=== PATIENT | male | born 1970 | race African-American/Black ===

== ENCOUNTER 2022-05-06 09:58 | Emergency (ER) | payer MEDICAID ==
[~2022-05-06] VITALS: Ht 172.7 cm; Wt 73.0 kg
[2022-05-06 10:10] VITALS: BP 149/105
[2022-05-06 12:05] LABS: CHLORIDE 105 mEq/L (98-107)
[2022-05-06 12:17] LABS: BASOPHILS % 0.5 % (0.0-2.0); EOSINOPHILS % 1.5 % (0.0-5.0); HEMATOCRIT. 46.6 % (42.0-52.0); HEMOGLOBIN. 15.8 g/dL (14.0-18.0); LYMPHOCYTES % 14.9 % (20.0-50.0); MEAN CORPUSCULAR HEMOGLOBIN 28.3 pg (28.0-32.0); MEAN CORPUSCULAR VOLUME 83.6 fL (80.0-94.0); MEAN PLATELET VOLUME 10.1 fl (7.4-10.4); MONOCYTES % 10.6 % (2.0-8.0); NEUTROPHILS % 72.5 % (40.0-76.0); PLATELET 192 x1000/uL (130-400); RED BLOOD CELL COUNT 5.57 mill/uL (4.7-6.1); RED CELL DISTRIBUTION WIDTH 13.4 % (11.6-14.6)
[2022-05-06] MEDS ORDERED: AMLO5TAB88 MT (14:04)
== END 2022-05-06 14:37 | disposition home or self-care (01) ==
LOC: ER 09:58
DX: R03.0 Elevated blood-pressure reading, without diagnosis of hypertension (principal); F14.10 Cocaine abuse, uncomplicated
CPT/HCPCS: 36415; 80048; 85025; 99283

== ENCOUNTER 2022-06-30 04:08 | Inpatient (IN) | payer MEDICAID ==
[~2022-06-30] VITALS: Ht 172.7 cm; Wt 74.8 kg
[~2022-06-30 04:08] MED LIST: AMLO5TAB88 MT
[2022-06-30 05:04] LABS: BASOPHILS % 0.6 % (0.0-2.0); EOSINOPHILS % 0.4 % (0.0-5.0); HEMATOCRIT. 47.5 % (42.0-52.0); HEMOGLOBIN. 16.4 g/dL (14.0-18.0); LYMPHOCYTES % 16.8 % (20.0-50.0); MEAN CORPUSCULAR HEMOGLOBIN 29.4 pg (28.0-32.0); MEAN CORPUSCULAR VOLUME 85.1 fL (80.0-94.0); MEAN PLATELET VOLUME 9.4 fl (7.4-10.4); MONOCYTES % 8.5 % (2.0-8.0); NEUTROPHILS % 73.7 % (40.0-76.0); PLATELET 222 x1000/uL (130-400); RED BLOOD CELL COUNT 5.58 mill/uL (4.7-6.1); RED CELL DISTRIBUTION WIDTH 14.7 % (11.6-14.6)
[2022-06-30 05:11] LABS: CHLORIDE 110 mEq/L (98-107)
[2022-06-30 05:23] LABS: ETHANOL BLOOD < 10 mg/dL
[2022-06-30] MEDS ORDERED: FUROSEMIDE 100MG/10ML VIAL IVP ONE (08:45)
[2022-06-30] MEDS ORDERED: HYDRALAZINE 20MG/ML VIAL IV ONE (08:45)
[2022-06-30] MEDS ORDERED: ASPIRIN 325MG EC TABLET PO NR (09:00)
[2022-06-30] MEDS ORDERED: FUROSEMIDE 40MG/4ML VIAL IVP NR (09:34)
[2022-06-30 11:26] LABS: *AMPHETAMINES SCREEN URINE NEGATIVE (NEGATIVE); *BARBITURATES SCREEN URINE NEGATIVE (NEGATIVE); *BENZODIAZEPINES SCREEN URINE NEGATIVE (NEGATIVE); *COCAINE SCREEN URINE PRESUMTIVE POSITIVE (NEGATIVE); CANNABINOID URINE SCREEN NEGATIVE (NEGATIVE); METHADONE URINE SCREEN NEGATIVE (NEGATIVE); OPIATES URINE SCREEN NEGATIVE (NEGATIVE); PHENCYCLIDINE URINE SCREEN NEGATIVE (NEGATIVE)
[2022-06-30] MEDS ORDERED: ONDANSETRON HCL 4MG/2ML INJ IV PRN (13:15)
[2022-06-30] MEDS ORDERED: MAGNESIUM/ALUMINUM HYDROXIDE/SIMETHICONE 30ML UDC PO PRN (13:15)
[2022-06-30] MEDS ORDERED: IPRATROPIUM/ALBUTEROL 0.5-3(2.5)MG/3ML NEB NEB PRN (13:15)
[2022-06-30] MEDS ORDERED: ACETAMINOPHEN 325MG TABLET PO PRN ×2 (13:15)
[2022-06-30] MEDS: ENOXAPARIN 40MG/0.4ML SYR SUBCUT SCH (14:50)
[2022-06-30 16:00] VITALS: BP 165/118
[2022-06-30] MEDS ORDERED: LORAZEPAM 1MG TABLET PO PRN (16:15)
[2022-06-30] MEDS: CLONIDINE 0.1MG TABLET PO PRN (16:19)
[2022-06-30] MEDS ORDERED: HYDRALAZINE 20MG/ML VIAL IV PRN (17:00)
[2022-06-30] MEDS: AMLODIPINE 10MG TABLET PO SCH (17:29)
[2022-06-30 20:00] VITALS: BP 113/86
[2022-07-01] VITALS: BP 128/92
[2022-07-01 04:00] VITALS: BP 143/97
[2022-07-01 07:32] LABS: CHLORIDE 104 mEq/L (98-107)
[2022-07-01 07:46] LABS: HDL CHOLESTEROL 49 mg/dL (40-59); LDL CHOLESTEROL 79 mg/dL (5-100); PHOSPHORUS 3.1 mg/dL (2.5-4.9); T4 FREE 1.07 ng/dL (0.76-1.46)
[2022-07-01 08:00] VITALS: BP 148/103
[2022-07-01 08:07] LABS: VITAMIN B12 SERUM 613 pg/mL (211-911)
[2022-07-01 08:17] LABS: BASOPHILS % 0.8 % (0.0-2.0); EOSINOPHILS % 0.5 % (0.0-5.0); HEMATOCRIT. 48.5 % (42.0-52.0); HEMOGLOBIN. 16.7 g/dL (14.0-18.0); LYMPHOCYTES % 18.4 % (20.0-50.0); MEAN CORPUSCULAR HEMOGLOBIN 28.6 pg (28.0-32.0); MEAN CORPUSCULAR VOLUME 82.9 fL (80.0-94.0); MONOCYTES % 9.9 % (2.0-8.0); NEUTROPHILS % 70.4 % (40.0-76.0); PLATELET 238 x1000/uL (130-400); RED BLOOD CELL COUNT 5.85 mill/uL (4.7-6.1)
[2022-07-01] MEDS: THIAMINE HCL 100MG TABLET PO SCH (09:07)
[2022-07-01] MEDS: AMLODIPINE 10MG TABLET PO SCH (09:07)
[2022-07-01] MEDS: CLONIDINE 0.1MG TABLET PO PRN ×2 (09:07→17:03)
[2022-07-01] MEDS: FUROSEMIDE 40MG/4ML VIAL IVP SCH ×2 (09:11→17:03)
[2022-07-01 12:00] VITALS: BP 159/89
[2022-07-01 14:16] LABS: HEPATITIS B SURFACE ANTIGEN NEGATIVE
[2022-07-01] MEDS: ENOXAPARIN 40MG/0.4ML SYR SUBCUT SCH (15:17)
[2022-07-01 16:00] VITALS: BP 160/90
[2022-07-01 16:02] LABS: CREATINE KINASE MB FRACTION 3.2 ng/mL (0.5-3.6)
[2022-07-01 20:00] VITALS: BP 111/76
[2022-07-02] VITALS: BP 145/93
[2022-07-02 00:10] LABS: CREATINE KINASE MB FRACTION 2.6 ng/mL (0.5-3.6)
[2022-07-02 04:45] VITALS: BP 124/85
[2022-07-02 07:41] VITALS: BP 128/82
[2022-07-02 08:50] LABS: BASOPHILS % 0.5 % (0.0-2.0); EOSINOPHILS % 0.6 % (0.0-5.0); HEMATOCRIT. 51.7 % (42.0-52.0); LYMPHOCYTES % 16.7 % (20.0-50.0); MEAN CORPUSCULAR HEMOGLOBIN 28.9 pg (28.0-32.0); MEAN CORPUSCULAR VOLUME 83.1 fL (80.0-94.0); MEAN PLATELET VOLUME 9.8 fl (7.4-10.4); NEUTROPHILS % 72.2 % (40.0-76.0); PLATELET 223 x1000/uL (130-400); RED BLOOD CELL COUNT 6.23 mill/uL (4.7-6.1)
[2022-07-02 09:14] LABS: CHLORIDE 102 mEq/L (98-107)
[2022-07-02] MEDS: THIAMINE HCL 100MG TABLET PO SCH (09:43)
[2022-07-02] MEDS: AMLODIPINE 10MG TABLET PO SCH (09:43)
[2022-07-02] MEDS: FUROSEMIDE 40MG/4ML VIAL IVP SCH ×2 (09:43→17:11)
[2022-07-02] MEDS: LOSARTAN POTASSIUM 25 MG TABLET PO SCH (09:47)
[2022-07-02 12:00] VITALS: BP 127/80
[2022-07-02] MEDS: ENOXAPARIN 40MG/0.4ML SYR SUBCUT SCH (14:41)
[2022-07-02] MEDS ORDERED: LOSA25TA3 PO (15:56)
[2022-07-02] MEDS ORDERED: THIA100T72 PO (15:56)
[2022-07-02] MEDS ORDERED: AMLO10TA80 PO (15:56)
[2022-07-02 16:00] VITALS: BP 132/88
[2022-07-02 20:20] VITALS: BP 100/67
[2022-07-03 00:20] VITALS: BP 120/77
[2022-07-03 04:00] VITALS: BP 121/84
[2022-07-03 07:12] LABS: BASOPHILS % 0.4 % (0.0-2.0); EOSINOPHILS % 1.4 % (0.0-5.0); HEMATOCRIT. 49.8 % (42.0-52.0); HEMOGLOBIN. 17.3 g/dL (14.0-18.0); LYMPHOCYTES % 18.1 % (20.0-50.0); MEAN CORPUSCULAR VOLUME 83.5 fL (80.0-94.0); MEAN PLATELET VOLUME 9.6 fl (7.4-10.4); MONOCYTES % 11.6 % (2.0-8.0); NEUTROPHILS % 68.5 % (40.0-76.0); PLATELET 212 x1000/uL (130-400); RED BLOOD CELL COUNT 5.96 mill/uL (4.7-6.1); RED CELL DISTRIBUTION WIDTH 14.3 % (11.6-14.6)
[2022-07-03 07:15] LABS: CHLORIDE 102 mEq/L (98-107)
[2022-07-03 08:00] VITALS: BP 132/100
[2022-07-03] MEDS: THIAMINE HCL 100MG TABLET PO SCH (09:39)
[2022-07-03] MEDS: LOSARTAN POTASSIUM 25 MG TABLET PO SCH (09:39)
[2022-07-03] MEDS: AMLODIPINE 10MG TABLET PO SCH (09:39)
[2022-07-03] MEDS: FUROSEMIDE 40MG/4ML VIAL IVP SCH (10:07)
[2022-07-03 12:00] VITALS: BP 127/83
[2022-07-03] MEDS: ENOXAPARIN 40MG/0.4ML SYR SUBCUT SCH (13:23)
[2022-07-03 15:15] VITALS: BP 129/82
[2022-07-03 15:19] VITALS: BP 127/81
[2022-07-03] MEDS ORDERED: SORBITOL 70% SOLN 30ML PO NR (16:00)
[2022-07-16] MEDS ORDERED: LOSA50TA3 PO (12:29)
[2022-07-16] MEDS ORDERED: AMLO10TA80 PO (12:29)
[2022-07-16] MEDS ORDERED: FURO40TA5 MT (12:29)
[2022-07-16] MEDS ORDERED: THIA100T72 PO (13:55)
== END 2022-07-03 16:00 | DRG 194 ==
LOC: ER 04:08 → SUPCPDRO 13:13 → 7EST 13:13 → 8WST 07-01 11:18
PROVIDERS: ADMIT Internal Medicine; ATTEND Internal Medicine
DX: I13.0 Hypertensive heart and chronic kidney disease with heart failure and stage 1 through stage 4 chronic kidney disease, or unspecified chronic kidney disease (principal); N17.9 Acute kidney failure, unspecified; N18.9 Chronic kidney disease, unspecified; I16.9 Hypertensive crisis, unspecified; F17.210 Nicotine dependence, cigarettes, uncomplicated; Z20.822 Contact with and (suspected) exposure to COVID-19; F14.10 Cocaine abuse, uncomplicated; R74.01 Elevation of levels of liver transaminase levels; F10.10 Alcohol abuse, uncomplicated; I50.21 Acute systolic (congestive) heart failure; K56.41 Fecal impaction; Z91.199 Patient's noncompliance with other medical treatment and regimen due to unspecified reason; Z59.00 Homelessness unspecified
CPT/HCPCS: 36415; 71045; 74176; 76700; 80048; 80053; 80061; 80076; 80305; 80320; 82550; 82553; 82607; 82746; 82977; 83036; 83735; 83880; 84100; 84145; 84439; 84443; 84484; 85025; 85379; 86705; 86706; 86709; 86803; 87340; 87426; 93005; 93306; 99291; J0360; J1650; J1940; G0480

== ENCOUNTER 2022-09-22 06:35 | Emergency (ER) | payer MEDICAID ==
[~2022-09-22] VITALS: Ht 172.7 cm; Wt 78.0 kg
[~2022-09-22 06:35] MED LIST changes: +AMLO10TA80 PO; -AMLO5TAB88 MT; +FURO40TA5 MT; +LOSA-413 PO; +THIA100T72 PO
[2022-09-22 06:43] VITALS: O2SAT 95
[2022-09-22 08:27] LABS: BASOPHILS % 0.4 % (0.0-2.0); DIFFERENTIAL COMMENT 0; EOSINOPHILS % 0.2 % (0.0-5.0); HEMATOCRIT. 41.3 % (42.0-52.0); LYMPHOCYTES % 12.6 % (20.0-50.0); MEAN CORPUSCULAR HEMOGLOBIN 28.7 pg (28.0-32.0); MEAN CORPUSCULAR HGB CONC 33.8 g/dL (31.0-37.0); MEAN PLATELET VOLUME 9.1 fl (7.4-10.4); NEUTROPHILS % 79.8 % (40.0-76.0); PLATELET 232 x1000/uL (130-400); RED BLOOD CELL COUNT 4.87 mill/uL (4.7-6.1); RED CELL DISTRIBUTION WIDTH 14.5 % (11.6-14.6)
[2022-09-22 08:37] LABS: CHLORIDE 109 mEq/L (98-107); INDEX HEMOLYSI 1 (1-3); INDEX ICTERIC 1 (1-4); INDEX LIPEMIC 1 (1-3); POTASSIUM 4.4 mEq/L (3.5-5.1); SODIUM 135 mEq/L (136-145)
[2022-09-22 08:48] LABS: ALANINE AMINOTRANSFERASE 95 IU/L (13-61); ASPARTATE AMINOTRANSFERASE 61 IU/L (15-37); BILIRUBIN TOTAL 0.4 mg/dL (0.1-1.0); CALCIUM 8.5 mg/dL (8.5-10.1); CARBON DIOXIDE 20 mEq/L (21-32); CREATININE 2.3 mg/dL (0.6-1.3); GLUCOSE 140 mg/dL (70-105); PROTEIN TOTAL 6.2 g/dL (6.0-8.3); UREA NITROGEN BLOOD 41 mg/dL (7-21)
[2022-09-22] MEDS ORDERED: FAMOTIDINE 20MG TABLET PO ONE (09:30)
[2022-09-22] MEDS ORDERED: ONDANSETRON HCL 4MG TABLET PO ONE (09:30)
[2022-09-22] MEDS ORDERED: ONDANSETRON HCL 4MG TABLET PO NR (09:45)
[2022-09-22] MEDS ORDERED: FAMOTIDINE 20MG TABLET PO NR (09:45)
[2022-09-22 09:59] LABS: ACETAMINOPHEN < 2 ug/mL (10-30); ETHANOL BLOOD < 10 mg/dL (-10)
[2022-09-22] MEDS ORDERED: POLY119P2 MT (12:19)
[2022-09-22 12:29] LABS: CLARITY URINE CLEAR (CLEAR); COLOR URINE YELLOW (YELLOW); GLUCOSE URINE NEGATIVE (NEGATIVE); KETONES URINE NEGATIVE (NEGATIVE); LEUKOCYTE ESTERASE URINE NEGATIVE (NEGATIVE); NITRITE URINE NEGATIVE (NEGATIVE); OCCULT BLOOD URINE TRACE (NEGATIVE); PROTEIN URINE 1+ (NEGATIVE); SPECIFIC GRAVITY URINE 1.019 (1.005-1.030); UROBILINOGEN URINE 0.2 E.U./dL (0.2-1.0)
[2022-09-22] MEDS ORDERED: POLYETHYLENE GLYCOL 3350 (17GM) 1 DOSE PACK PO ONE (12:30)
[2022-09-22 12:57] LABS: *AMPHETAMINES SCREEN URINE NEGATIVE (NEGATIVE); *BARBITURATES SCREEN URINE NEGATIVE (NEGATIVE); *BENZODIAZEPINES SCREEN URINE NEGATIVE (NEGATIVE); *COCAINE SCREEN URINE PRESUMTIVE POSITIVE (NEGATIVE); CANNABINOID URINE SCREEN PRESUMTIVE POSITIVE (NEGATIVE); ECSTASY MDMA SCREEN URINE NEGATIVE (NEGATIVE); METHADONE URINE SCREEN NEGATIVE (NEGATIVE); OPIATES URINE SCREEN NEGATIVE (NEGATIVE); PHENCYCLIDINE URINE SCREEN NEGATIVE (NEGATIVE)
[2022-09-22 13:34] LABS: MUCUS URINE TRACE /lpf (NONE/TRACE)
[2022-09-22 13:35] LABS: SQUAMOUS EPITHELIAL CELL URINE NONE SEEN /lpf (RARE/1+)
[2022-09-22 13:36] LABS: BACTERIA URINE TRACE; URIC ACID CRYSTALS URINE 1+ /lpf; WBC URINE 0-2 /hpf (0-2)
[2022-09-22 13:37] LABS: RBC URINE NONE SEEN /hpf (0-2)
[2022-09-22 13:41] VITALS: BP 130/87; PULSE 78; RESP 17; TEMP 98.1
== END 2022-09-22 13:43 | disposition home or self-care (01) ==
LOC: ER 06:35
DX: K59.00 Constipation, unspecified (principal); I10 Essential (primary) hypertension; F14.10 Cocaine abuse, uncomplicated; F15.10 Other stimulant abuse, uncomplicated
CPT/HCPCS: 80053; 80305; 81003; 80307; 80329; 80320; 83690; 85025; 36415; 74176; 99284; Z7610; G0480

== ENCOUNTER 2022-11-08 05:41 | Emergency (ER) | payer MEDICAID ==
[~2022-11-08] VITALS: Ht 170.2 cm; Wt 76.0 kg
[~2022-11-08 05:41] MED LIST changes: +POLY119P2 MT
[2022-11-08 05:46] VITALS: TEMP 98.2; O2SAT 98
[2022-11-08] MEDS ORDERED: MAGNESIUM/ALUMINUM HYDROXIDE/SIMETHICONE 30ML UDC PO STA (05:52)
[2022-11-08 06:25] LABS: BASOPHILS % 0.7 % (0.0-2.0); EOSINOPHILS % 0.1 % (0.0-5.0); HEMATOCRIT. 45.6 % (42.0-52.0); HEMOGLOBIN. 15.5 g/dL (14.0-18.0); LYMPHOCYTES % 10.2 % (20.0-50.0); MEAN CORPUSCULAR HGB CONC 34.1 g/dL (31.0-37.0); MONOCYTES % 7.6 % (2.0-8.0); NEUTROPHILS % 81.4 % (40.0-76.0); PLATELET 171 x1000/uL (130-400); RED BLOOD CELL COUNT 5.37 mill/uL (4.7-6.1); RED CELL DISTRIBUTION WIDTH 14.1 % (11.6-14.6); WHITE BLOOD COUNT 7.3 x1000/uL (4.5-11.0)
[2022-11-08 06:55] LABS: INDEX HEMOLYSI 1 (1-3); INDEX ICTERIC 1 (1-4); INDEX LIPEMIC 1 (1-3)
[2022-11-08 07:07] LABS: ALANINE AMINOTRANSFERASE 39 IU/L (13-61); ALBUMIN 3.4 g/dL (3.4-5.0); ASPARTATE AMINOTRANSFERASE 31 IU/L (15-37); BILIRUBIN TOTAL 0.6 mg/dL (0.1-1.0); CALCIUM 8.4 mg/dL (8.5-10.1); CARBON DIOXIDE 23 mEq/L (21-32); CHLORIDE 108 mEq/L (98-107); CREATININE 2.2 mg/dL (0.6-1.3); ETHANOL BLOOD < 10 mg/dL (-10); GLUCOSE 125 mg/dL (70-105); NT PRO B-TYPE NATRIURETIC PEP 21108 pg/mL (5-125); POTASSIUM 4.9 mEq/L (3.5-5.1); SODIUM 137 mEq/L (136-145); TROPONIN I HIGH SENSITIVITY 32 ng/L (<78); UREA NITROGEN BLOOD 26 mg/dL (7-21)
[2022-11-08] MEDS ORDERED: MAGNESIUM/ALUMINUM HYDROXIDE/SIMETHICONE 30ML UDC PO NR (08:00)
[2022-11-08] MEDS ORDERED: AMLO10TA4 MT (08:36)
[2022-11-08] MEDS ORDERED: LOSA-413 MT (08:36)
[2022-11-08] MEDS ORDERED: FURO-151 MT (08:36)
[2022-11-08 08:45] VITALS: BP 132/76; PULSE 80; RESP 16
[2022-11-08] MEDS ORDERED: FUROSEMIDE 40MG TABLET PO ONE (08:45)
[2022-11-08] MEDS ORDERED: ACETAMINOPHEN WITH CODEINE 300/30MG TABLET PO ONE (08:45)
[2022-11-08] MEDS ORDERED: LOSARTAN POTASSIUM 50 MG TABLET PO ONE (08:45)
[2022-11-08] MEDS ORDERED: AMLODIPINE 10MG TABLET PO ONE (08:45)
== END 2022-11-08 09:22 | disposition home or self-care (01) ==
LOC: ER 05:41
DX: I11.0 Hypertensive heart disease with heart failure (principal); I50.9 Heart failure, unspecified; F14.10 Cocaine abuse, uncomplicated; F12.10 Cannabis abuse, uncomplicated; R10.9 Unspecified abdominal pain
CPT/HCPCS: 80053; 80320; 83880; 83690; 85025; 84484; 36415; 71045; 74176; 93005; 99285; Z7610; G0480

== ENCOUNTER 2022-11-15 13:51 | Emergency (ER) | payer MEDICAID ==
[~2022-11-15] VITALS: Ht 172.7 cm; Wt 72.0 kg
[~2022-11-15 13:51] MED LIST changes: +AMLO10TA4 MT; +FURO-151 MT; +LOSA-413 MT
[2022-11-15 14:02] VITALS: BP 118/89; RESP 22; TEMP 98.7; O2SAT 99
[2022-11-15 14:07] VITALS: PULSE 62
[2022-11-15] MEDS ORDERED: POLY119P2 MT (14:28)
== END 2022-11-15 15:32 | disposition home or self-care (01) ==
LOC: ER 13:51
DX: Z76.0 Encounter for issue of repeat prescription (principal); I11.0 Hypertensive heart disease with heart failure; I50.9 Heart failure, unspecified; Z79.899 Other long term (current) drug therapy; F14.10 Cocaine abuse, uncomplicated; F12.10 Cannabis abuse, uncomplicated
CPT/HCPCS: 99281

== ENCOUNTER 2022-11-26 13:10 | Emergency (ER) | payer MEDICAID ==
[~2022-11-26] VITALS: Ht 175.3 cm; Wt 74.0 kg
[2022-11-26 13:16] VITALS: BP 137/97; PULSE 85; RESP 19; TEMP 98; O2SAT 97
== END 2022-11-26 15:26 | disposition home or self-care (01) ==
LOC: ER 13:16
DX: R10.30 Lower abdominal pain, unspecified (principal); R06.02 Shortness of breath; F12.90 Cannabis use, unspecified, uncomplicated; I11.0 Hypertensive heart disease with heart failure
CPT/HCPCS: 99283

== ENCOUNTER 2022-12-02 03:49 | Emergency (ER) | payer MEDICAID ==
[~2022-12-02] VITALS: Ht 165.1 cm; Wt 67.0 kg
[2022-12-02 03:55] VITALS: TEMP 98.3; O2SAT 100
[2022-12-02] MEDS ORDERED: TETRACAINE 0.5% OPHTH DROPS 4ML LEFTEYE ONE (05:45)
[2022-12-02] MEDS ORDERED: FLUORESCEIN SODIUM 1MG/STRIP LEFTEYE ONE (05:45)
[2022-12-02] MEDS ORDERED: POLY10DR LEFTEYE (06:28)
[2022-12-02 07:00] VITALS: BP 142/79; PULSE 91; RESP 17
== END 2022-12-02 07:16 | disposition home or self-care (01) ==
LOC: ER 03:49
DX: H10.9 Unspecified conjunctivitis (principal); I11.0 Hypertensive heart disease with heart failure; I50.9 Heart failure, unspecified; F14.10 Cocaine abuse, uncomplicated; F12.10 Cannabis abuse, uncomplicated; Z79.899 Other long term (current) drug therapy
CPT/HCPCS: 99283; Z7610

== ENCOUNTER 2023-02-12 02:53 | Emergency (ER) | payer MEDICAID ==
[~2023-02-12] VITALS: Ht 177.8 cm; Wt 82.0 kg
[~2023-02-12 02:53] MED LIST changes: -AMLO10TA4 MT; +ASPI-1160 PO; +DOCU-138 MT; -FURO-151 MT; +FURO10VI3 PO; -FURO40TA5 MT; -LOSA-413 MT; -LOSA-413 PO; +LOSA50TA41 PO; -POLY119P2 MT; +POLY17PO43 PO; +SPIR25TA PO; -THIA100T72 PO
[2023-02-12 03:00] VITALS: BP 153/119; O2SAT 100
[2023-02-12] MEDS ORDERED: BISA-81 MT (04:33)
[2023-02-12 04:59] VITALS: PULSE 91; RESP 18; TEMP 98
== END 2023-02-12 05:02 | disposition home or self-care (01) ==
LOC: ER 02:53
DX: K59.00 Constipation, unspecified (principal); I11.0 Hypertensive heart disease with heart failure; I50.9 Heart failure, unspecified; Z79.899 Other long term (current) drug therapy
CPT/HCPCS: 99283

== ENCOUNTER 2023-02-21 22:15 | Emergency (ER) | payer MEDICAID ==
[~2023-02-21] VITALS: Ht 162.6 cm; Wt 60.0 kg
[~2023-02-21 22:15] MED LIST changes: +BISA-81 MT
[2023-02-21 22:22] VITALS: BP 173/108; PULSE 120; RESP 18; TEMP 98.4; O2SAT 98
[2023-02-21 23:29] LABS: BASOPHILS % 0.6 % (0.0-2.0); DIFFERENTIAL COMMENT 0; EOSINOPHILS % 0.7 % (0.0-5.0); HEMATOCRIT. 48.5 % (42.0-52.0); HEMOGLOBIN. 15.9 g/dL (14.0-18.0); LYMPHOCYTES % 11.5 % (20.0-50.0); MEAN CORPUSCULAR HEMOGLOBIN 28.4 pg (28.0-32.0); MEAN CORPUSCULAR HGB CONC 32.8 g/dL (31.0-37.0); MEAN CORPUSCULAR VOLUME 86.6 fL (80.0-94.0); MEAN PLATELET VOLUME 8.6 fl (7.4-10.4); MONOCYTES % 6.5 % (2.0-8.0); NEUTROPHILS % 80.7 % (40.0-76.0); PLATELET 232 x1000/uL (130-400); RED CELL DISTRIBUTION WIDTH 14.5 % (11.6-14.6); WHITE BLOOD COUNT 7.6 x1000/uL (4.5-11.0)
[2023-02-21 23:43] LABS: ALANINE AMINOTRANSFERASE 39 IU/L (10-49); ALBUMIN 3.8 g/dL (3.2-4.8); ASPARTATE AMINOTRANSFERASE 29 IU/L (<34); BILIRUBIN TOTAL 0.7 mg/dL (0.1-1.0); CALCIUM 8.7 mg/dL (8.7-10.4); CARBON DIOXIDE 29 mEq/L (21-32); CHLORIDE 102 mEq/L (98-107); CREATININE 1.3 mg/dL (0.6-1.3); GLUCOSE 142 mg/dL (70-105); PROTEIN TOTAL 6.8 g/dL (6.0-8.3); SODIUM 137 mEq/L (136-145); UREA NITROGEN BLOOD 24 mg/dL (9-23)
[2023-02-22] MEDS ORDERED: CEFTRIAXONE 1GM PREMIX 50 ML IV ONE (08:15)
[2023-02-22] MEDS ORDERED: SODIUM CHLORIDE 0.9% 1000ML BAG (SEPSIS BOLUS) IV ONE (08:15)
[2023-02-22] MEDS ORDERED: MORPHINE SULFATE 4 MG/ML CPJ (NOT FOR IM USE) IV ONE (08:15)
[2023-02-22] MEDS ORDERED: ONDANSETRON HCL 4MG/2ML INJ IV ONE (08:15)
== END 2023-02-22 12:16 | disposition left against medical advice (07) ==
LOC: ER 22:15
DX: R10.9 Unspecified abdominal pain (principal)
CPT/HCPCS: 99284; 80053; 83690; 85025; 36415; 74176; J7030

== ENCOUNTER 2023-03-17 07:22 | Emergency (ER) | payer SELFPAY ==
[~2023-03-17] VITALS: Ht 162.6 cm; Wt 64.0 kg
[2023-03-17 07:33] VITALS: BP 136/92; PULSE 76; RESP 16; TEMP 98.2; O2SAT 98
[2023-03-17 09:55] LABS: BASOPHILS % 0.2 % (0.0-2.0); EOSINOPHILS % 0.2 % (0.0-5.0); HEMATOCRIT. 52.2 % (42.0-52.0); LYMPHOCYTES % 8.7 % (20.0-50.0); MEAN CORPUSCULAR HEMOGLOBIN 28.5 pg (28.0-32.0); MEAN CORPUSCULAR HGB CONC 32.5 g/dL (31.0-37.0); MEAN CORPUSCULAR VOLUME 87.9 fL (80.0-94.0); MEAN PLATELET VOLUME 9.1 fl (7.4-10.4); MONOCYTES % 8.1 % (2.0-8.0); NEUTROPHILS % 82.8 % (40.0-76.0); PLATELET 257 x1000/uL (130-400); RED BLOOD CELL COUNT 5.94 mill/uL (4.7-6.1); WHITE BLOOD COUNT 6.7 x1000/uL (4.5-11.0)
[2023-03-17 10:09] LABS: ALANINE AMINOTRANSFERASE 26 IU/L (10-49); ALBUMIN 4.6 g/dL (3.2-4.8); ASPARTATE AMINOTRANSFERASE 23 IU/L (<34); BILIRUBIN TOTAL 0.4 mg/dL (0.1-1.0); CALCIUM 9.3 mg/dL (8.7-10.4); CARBON DIOXIDE 28 mEq/L (21-32); CHLORIDE 97 mEq/L (98-107); GLUCOSE 91 mg/dL (70-105); POTASSIUM 5.9 mEq/L (3.5-5.1); PROTEIN TOTAL 8.6 g/dL (6.0-8.3); SODIUM 129 mEq/L (136-145); TROPONIN I HIGH SENSITIVITY 33 ng/L (3.0-53); UREA NITROGEN BLOOD 49 mg/dL (9-23)
[2023-03-17 10:13] LABS: PROTHROMBIN TIME 10.7 sec (9.6-11.0)
[2023-03-17 10:20] LABS: CREATININE 2.3 mg/dL (0.6-1.3)
[2023-03-17] MEDS ORDERED: FUROSEMIDE 100MG/10ML VIAL IV STA (10:28)
[2023-03-17] MEDS ORDERED: SODIUM BICARBONATE 8.4% 1 MEQ/ML 50ML SYR IV ONE (10:30)
[2023-03-17] MEDS ORDERED: ALBUTEROL (0.083%) 2.5MG/3ML NEB HHN ONE (10:30)
[2023-03-17] MEDS ORDERED: CALCIUM CHLORIDE 1GM/10ML SYR IV ONE (10:30)
[2023-03-17] MEDS ORDERED: DEXTROSE 50% WATER 50ML SYRINGE IV ONE (10:30)
[2023-03-17] MEDS ORDERED: INSULIN REGULAR (HUMULIN R) 300UNITS/3ML VIAL IV ONE (10:30)
[2023-03-17 15:49] LABS: CREATINE KINASE 145 IU/L (46-171)
== END 2023-03-17 14:18 | disposition left against medical advice (07) ==
LOC: ER 07:46 → CANBEDREQ 14:17 → ER 14:18
DX: N17.9 Acute kidney failure, unspecified (principal); E87.5 Hyperkalemia; I11.0 Hypertensive heart disease with heart failure; I50.9 Heart failure, unspecified; F14.20 Cocaine dependence, uncomplicated
CPT/HCPCS: 36415; 80053; 82550; 84484; 85025; 99291; J1940

== ENCOUNTER 2023-04-22 18:19 | Emergency (ER) | payer MEDICAID, OTHER ==
[~2023-04-22] VITALS: Ht 180.3 cm; Wt 91.0 kg
[~2023-04-22 18:19] MED LIST changes: -BISA-81 MT; -DOCU-138 MT; +FURO-151 PO; -FURO10VI3 PO; -POLY17PO43 PO
[2023-04-22 18:28] VITALS: BP 107/67; PULSE 80; RESP 16; TEMP 97; O2SAT 97
[2023-04-22] MEDS ORDERED: MAGNESIUM/ALUMINUM HYDROXIDE/SIMETHICONE 30ML UDC PO STA (18:41)
[2023-04-22] MEDS ORDERED: FAMOTIDINE 20MG TABLET PO ONE (18:45)
[2023-04-22 19:44] LABS: BASOPHILS % 0.4 % (0.0-2.0); EOSINOPHILS % 0.1 % (0.0-5.0); HEMATOCRIT. 48.5 % (42.0-52.0); HEMOGLOBIN. 16.1 g/dL (14.0-18.0); LYMPHOCYTES % 10.6 % (20.0-50.0); MEAN CORPUSCULAR HEMOGLOBIN 29.2 pg (28.0-32.0); MEAN CORPUSCULAR HGB CONC 33.1 g/dL (31.0-37.0); MEAN CORPUSCULAR VOLUME 88.2 fL (80.0-94.0); MEAN PLATELET VOLUME 8.6 fl (7.4-10.4); MONOCYTES % 5.3 % (2.0-8.0); NEUTROPHILS % 83.6 % (40.0-76.0); PLATELET 270 x1000/uL (130-400); RED CELL DISTRIBUTION WIDTH 15.3 % (11.6-14.6); WHITE BLOOD COUNT 8.6 x1000/uL (4.5-11.0)
[2023-04-22 19:59] LABS: ALANINE AMINOTRANSFERASE 42 IU/L (10-49); ALBUMIN 4.2 g/dL (3.2-4.8); ASPARTATE AMINOTRANSFERASE 42 IU/L (<34); BILIRUBIN TOTAL 0.5 mg/dL (0.1-1.0); CALCIUM 9.3 mg/dL (8.7-10.4); CARBON DIOXIDE 24 mEq/L (21-32); CHLORIDE 102 mEq/L (98-107); GLUCOSE 92 mg/dL (70-105); POTASSIUM 5.2 mEq/L (3.5-5.1); PROTEIN TOTAL 7.1 g/dL (6.0-8.3); SODIUM 136 mEq/L (136-145); TROPONIN I HIGH SENSITIVITY 43 ng/L (3.0-53); UREA NITROGEN BLOOD 34 mg/dL (9-23)
[2023-04-22 20:00] LABS: CREATININE 2.1 mg/dL (0.6-1.3); ETHANOL BLOOD < 10 mg/dL (<10)
[2023-04-22] MEDS: MAGNESIUM/ALUMINUM HYDROXIDE/SIMETHICONE 30ML UDC PO NR (21:29)
[2023-04-22] MEDS: FAMOTIDINE 20MG TABLET PO NR (21:29)
== END 2023-04-22 22:35 | disposition home or self-care (01) ==
LOC: ER 18:19
DX: R10.9 Unspecified abdominal pain (principal); I11.0 Hypertensive heart disease with heart failure; I50.9 Heart failure, unspecified; F14.90 Cocaine use, unspecified, uncomplicated; F19.90 Other psychoactive substance use, unspecified, uncomplicated
CPT/HCPCS: 80053; 80320; 83880; 85025; 84484; 36415; 74176; 93005; 99284; Z7610; G0480

== ENCOUNTER 2023-06-17 04:25 | Emergency (ER) | payer OTHER ==
[~2023-06-17] VITALS: Ht 172.7 cm; Wt 75.0 kg
[2023-06-17 04:27] VITALS: O2SAT 98
[2023-06-17 08:53] LABS: BASOPHILS % 0.6 % (0.0-2.0); EOSINOPHILS % 0.1 % (0.0-5.0); HEMATOCRIT. 46.1 % (42.0-52.0); HEMOGLOBIN. 15.1 g/dL (14.0-18.0); MEAN CORPUSCULAR HEMOGLOBIN 27.4 pg (28.0-32.0); MEAN CORPUSCULAR HGB CONC 32.7 g/dL (31.0-37.0); MEAN PLATELET VOLUME 8.7 fl (7.4-10.4); MONOCYTES % 8.6 % (2.0-8.0); NEUTROPHILS % 78.7 % (40.0-76.0); PLATELET 227 x1000/uL (130-400); RED BLOOD CELL COUNT 5.49 mill/uL (4.7-6.1); RED CELL DISTRIBUTION WIDTH 15.7 % (11.6-14.6)
[2023-06-17 09:16] LABS: ALANINE AMINOTRANSFERASE 37 IU/L (10-49); ASPARTATE AMINOTRANSFERASE 31 IU/L (<34); BILIRUBIN TOTAL 0.7 mg/dL (0.1-1.0); CALCIUM 8.6 mg/dL (8.7-10.4); CARBON DIOXIDE 23 mEq/L (21-32); CHLORIDE 103 mEq/L (98-107); CREATININE 2.2 mg/dL (0.6-1.3); GLUCOSE 89 mg/dL (70-105); POTASSIUM 4.9 mEq/L (3.5-5.1); SODIUM 135 mEq/L (136-145); UREA NITROGEN BLOOD 42 mg/dL (9-23)
[2023-06-17] MEDS ORDERED: SENN-215 MT (10:01)
[2023-06-17 11:11] VITALS: BP 109/69; PULSE 80; RESP 16; TEMP 98.4
== END 2023-06-17 10:12 | disposition home or self-care (01) ==
LOC: ER 04:46
DX: K59.00 Constipation, unspecified (principal); I11.0 Hypertensive heart disease with heart failure; I50.9 Heart failure, unspecified; F14.90 Cocaine use, unspecified, uncomplicated
CPT/HCPCS: 36415; 74176; 80053; 85025; 99284

== ENCOUNTER 2023-08-13 14:46 | Emergency (ER) | payer OTHER ==
[~2023-08-13] VITALS: Ht 172.7 cm; Wt 77.0 kg
[~2023-08-13 14:46] MED LIST changes: +SENN-215 MT
[2023-08-13 14:48] VITALS: TEMP 98.4; O2SAT 96
[2023-08-13 16:37] LABS: BASOPHILS % 0.9 % (0.0-2.0); EOSINOPHILS % 0.6 % (0.0-5.0); HEMATOCRIT. 48.8 % (42.0-52.0); HEMOGLOBIN. 15.5 g/dL (14.0-18.0); LYMPHOCYTES % 23.7 % (20.0-50.0); MEAN CORPUSCULAR HEMOGLOBIN 25.8 pg (28.0-32.0); MEAN CORPUSCULAR HGB CONC 31.7 g/dL (31.0-37.0); MEAN CORPUSCULAR VOLUME 81.2 fL (80.0-94.0); MONOCYTES % 8.3 % (2.0-8.0); NEUTROPHILS % 66.5 % (40.0-76.0); PLATELET 256 x1000/uL (130-400); RED BLOOD CELL COUNT 6.01 mill/uL (4.7-6.1); WHITE BLOOD COUNT 4.9 x1000/uL (4.5-11.0)
[2023-08-13 16:41] LABS: CHLORIDE 103 mEq/L (98-107); POTASSIUM 4.6 mEq/L (3.5-5.1); SODIUM 136 mEq/L (136-145)
[2023-08-13 16:42] LABS: CARBON DIOXIDE 23 mEq/L (21-32)
[2023-08-13 16:43] LABS: CALCIUM 9.2 mg/dL (8.7-10.4)
[2023-08-13 16:47] LABS: CREATININE 1.8 mg/dL (0.6-1.3)
[2023-08-13 16:48] LABS: GLUCOSE 111 mg/dL (70-105); INR 1.1; UREA NITROGEN BLOOD 25 mg/dL (9-23)
[2023-08-13 16:49] LABS: ALANINE AMINOTRANSFERASE 70 IU/L (10-49); ALBUMIN 4.1 g/dL (3.2-4.8); ASPARTATE AMINOTRANSFERASE 36 IU/L (<34)
[2023-08-13 16:50] LABS: BILIRUBIN DIRECT 0.3 mg/dL (<=3.0); BILIRUBIN TOTAL 1.2 mg/dL (0.1-1.0); ETHANOL BLOOD < 10 mg/dL (<10); PROTEIN TOTAL 7.3 g/dL (6.0-8.3)
[2023-08-13] MEDS ORDERED: SIME80TA15 MT (20:57)
[2023-08-13] MEDS ORDERED: AZIT500T8 MT (20:57)
[2023-08-13] MEDS: MAGNESIUM/ALUMINUM HYDROXIDE/SIMETHICONE 30ML UDC PO ONE (21:36)
[2023-08-13] MEDS: AZITHROMYCIN 500 MG TABLET PO ONE (21:36)
[2023-08-13 22:52] VITALS: BP 165/88; PULSE 90; RESP 20
== END 2023-08-14 01:53 | disposition home or self-care (01) ==
LOC: ER 14:46
DX: R10.9 Unspecified abdominal pain (principal); I11.0 Hypertensive heart disease with heart failure; I50.9 Heart failure, unspecified; F14.90 Cocaine use, unspecified, uncomplicated
CPT/HCPCS: 36415; 74176; 80048; 80076; 80320; 85025; 99284; G0480

== ENCOUNTER 2023-08-20 17:27 | Emergency (ER) | payer OTHER ==
[~2023-08-20] VITALS: Ht 175.3 cm; Wt 74.0 kg
[~2023-08-20 17:27] MED LIST changes: +AZIT500T8 MT; +SIME80TA15 MT
[2023-08-20 17:30] VITALS: BP 137/107; PULSE 70; RESP 18; TEMP 98.3; O2SAT 100
[2023-08-20 19:23] LABS: BASOPHILS % 0.5 % (0.0-2.0); DIFFERENTIAL COMMENT 0; EOSINOPHILS % 0.3 % (0.0-5.0); HEMATOCRIT. 46.6 % (42.0-52.0); HEMOGLOBIN. 15.1 g/dL (14.0-18.0); LYMPHOCYTES % 12.9 % (20.0-50.0); MEAN CORPUSCULAR HEMOGLOBIN 25.6 pg (28.0-32.0); MEAN CORPUSCULAR HGB CONC 32.5 g/dL (31.0-37.0); MEAN CORPUSCULAR VOLUME 78.8 fL (80.0-94.0); MEAN PLATELET VOLUME 8.2 fl (7.4-10.4); MONOCYTES % 6.9 % (2.0-8.0); NEUTROPHILS % 79.4 % (40.0-76.0); PLATELET 209 x1000/uL (130-400); RED BLOOD CELL COUNT 5.91 mill/uL (4.7-6.1); RED CELL DISTRIBUTION WIDTH 17.2 % (11.6-14.6); WHITE BLOOD COUNT 5.9 x1000/uL (4.5-11.0)
[2023-08-20 19:34] LABS: CHLORIDE 104 mEq/L (98-107); POTASSIUM 4.6 mEq/L (3.5-5.1); PROTHROMBIN TIME 11.4 sec (9.6-11.0); SODIUM 136 mEq/L (136-145)
[2023-08-20 19:35] LABS: CARBON DIOXIDE 26 mEq/L (21-32)
[2023-08-20 19:40] LABS: CREATININE 1.9 mg/dL (0.6-1.3); GLUCOSE 106 mg/dL (70-105); UREA NITROGEN BLOOD 25 mg/dL (9-23)
[2023-08-20 19:42] LABS: ALANINE AMINOTRANSFERASE 85 IU/L (10-49); ALBUMIN 4.4 g/dL (3.2-4.8); ASPARTATE AMINOTRANSFERASE 56 IU/L (<34)
[2023-08-20 19:43] LABS: BILIRUBIN DIRECT 0.3 mg/dL (<=3.0); BILIRUBIN TOTAL 0.8 mg/dL (0.1-1.0)
[2023-08-20] MEDS: MAGNESIUM/ALUMINUM HYDROXIDE/SIMETHICONE 30ML UDC PO STA (19:53)
[2023-08-20] MEDS: ONDANSETRON 4MG ODT PO STA (19:53)
[2023-08-20] MEDS ORDERED: DICYCLOMINE 10 MG/5 ML ORAL SYR PO STA (19:53)
[2023-08-20] MEDS: DICYCLOMINE HCL 10MG CAPSULE PO NR (20:00)
[2023-08-20] MEDS ORDERED: FAMO-135 MT (20:10)
== END 2023-08-20 20:44 | disposition home or self-care (01) ==
LOC: ER 17:27
DX: G89.29 Other chronic pain (principal); R10.9 Unspecified abdominal pain; I11.0 Hypertensive heart disease with heart failure; I50.9 Heart failure, unspecified; Z79.899 Other long term (current) drug therapy
CPT/HCPCS: 99284; 80076; 80048; 83690; 85025; 85610; 36415; Q0162

== ENCOUNTER 2023-08-22 08:13 | Emergency (ER) | payer OTHER ==
[~2023-08-22] VITALS: Ht 172.7 cm; Wt 74.0 kg
[~2023-08-22 08:13] MED LIST changes: +FAMO-135 MT
[2023-08-22 08:25] VITALS: O2SAT 98
[2023-08-22 09:22] VITALS: TEMP 97.7
[2023-08-22] MEDS: ACETAMINOPHEN 325MG TABLET PO ONE (09:22)
[2023-08-22 09:48] LABS: CALCIUM 9.1 mg/dL (8.7-10.4)
[2023-08-22] MEDS: MAGNESIUM/ALUMINUM HYDROXIDE/SIMETHICONE 30ML UDC PO ONE (09:49)
[2023-08-22] MEDS: PANTOPRAZOLE SODIUM 40 MG/VIAL IV ONE (09:49)
[2023-08-22] MEDS: POLYETHYLENE GLYCOL-ELECTROLYTE 4000ML PO ONE (09:50)
[2023-08-22 09:52] LABS: CREATININE 1.8 mg/dL (0.6-1.3)
[2023-08-22 09:53] LABS: INR 1.1; PROTHROMBIN TIME 11.9 sec (9.6-11.0)
[2023-08-22 10:19] LABS: BASOPHILS % 0.7 % (0.0-2.0); EOSINOPHILS % 0.2 % (0.0-5.0); HEMOGLOBIN. 14.6 g/dL (14.0-18.0); LYMPHOCYTES % 18.5 % (20.0-50.0); MEAN CORPUSCULAR HEMOGLOBIN 25.6 pg (28.0-32.0); MEAN CORPUSCULAR HGB CONC 31.7 g/dL (31.0-37.0); MEAN CORPUSCULAR VOLUME 80.9 fL (80.0-94.0); MEAN PLATELET VOLUME 8.7 fl (7.4-10.4); MONOCYTES % 6.2 % (2.0-8.0); NEUTROPHILS % 74.4 % (40.0-76.0); PLATELET 237 x1000/uL (130-400); RED BLOOD CELL COUNT 5.69 mill/uL (4.7-6.1); RED CELL DISTRIBUTION WIDTH 17.4 % (11.6-14.6); WHITE BLOOD COUNT 5.3 x1000/uL (4.5-11.0)
[2023-08-22] MEDS ORDERED: SENN-215 MT (12:53)
[2023-08-22] MEDS ORDERED: TOPUD MT (12:53)
[2023-08-22] MEDS ORDERED: PANT40SU MT (12:53)
[2023-08-22 13:11] VITALS: BP 129/100; PULSE 103; RESP 14
[2023-08-25] MEDS ORDERED: LOSA100T33 MT (13:38)
[2023-08-25] MEDS ORDERED: CARV25TA47 MT (13:38)
[2023-08-25] MEDS ORDERED: FLUT1DIS3 INH (13:38)
[2023-08-25] MEDS ORDERED: FURO-151 MT (13:38)
[2023-08-25] MEDS ORDERED: ALBU18HF2 IH (13:38)
== END 2023-08-22 14:12 | disposition home or self-care (01) ==
LOC: ER 08:13
DX: R10.9 Unspecified abdominal pain (principal); F17.200 Nicotine dependence, unspecified, uncomplicated; I11.0 Hypertensive heart disease with heart failure; I50.9 Heart failure, unspecified; Z98.890 Other specified postprocedural states; Z79.82 Long term (current) use of aspirin
CPT/HCPCS: 80048; 83690; 85025; 85610; 36415; 74018; 93005; 96365; 99285; C9113; Z7610 ×3

== ENCOUNTER 2023-09-02 00:56 | Emergency (ER) | payer OTHER ==
[~2023-09-02] VITALS: Ht 172.7 cm; Wt 68.0 kg
[~2023-09-02 00:56] MED LIST changes: +ALBU18HF2 IH; -AZIT500T8 MT; +CARV25TA47 MT; +FLUT1DIS3 INH; +FURO-151 MT; +LOSA100T33 MT; +PANT40SU MT; +TOPUD MT
[2023-09-02 01:01] VITALS: O2SAT 96
[2023-09-02] MEDS: MAGNESIUM/ALUMINUM HYDROXIDE/SIMETHICONE 30ML UDC PO ONE (01:36)
[2023-09-02] MEDS: ONDANSETRON HCL 4MG/2ML INJ IV STA (01:36)
[2023-09-02 01:43] LABS: HEMATOCRIT. 45.6 % (42.0-52.0); HEMOGLOBIN. 14.6 g/dL (14.0-18.0); LYMPHOCYTES % 21.5 % (20.0-50.0); MEAN CORPUSCULAR HEMOGLOBIN 26.3 pg (28.0-32.0); MEAN CORPUSCULAR HGB CONC 32.1 g/dL (31.0-37.0); MEAN CORPUSCULAR VOLUME 81.8 fL (80.0-94.0); MEAN PLATELET VOLUME 8.5 fl (7.4-10.4); MONOCYTES % 11.3 % (2.0-8.0); NEUTROPHILS % 65.2 % (40.0-76.0); PLATELET 189 x1000/uL (130-400); RED BLOOD CELL COUNT 5.57 mill/uL (4.7-6.1); RED CELL DISTRIBUTION WIDTH 18.3 % (11.6-14.6); WHITE BLOOD COUNT 5.7 x1000/uL (4.5-11.0)
[2023-09-02 01:52] LABS: CHLORIDE 104 mEq/L (98-107); SODIUM 134 mEq/L (136-145)
[2023-09-02 01:53] LABS: CALCIUM 8.8 mg/dL (8.7-10.4); CARBON DIOXIDE 24 mEq/L (21-32)
[2023-09-02 01:58] LABS: GLUCOSE 125 mg/dL (70-105); UREA NITROGEN BLOOD 27 mg/dL (9-23)
[2023-09-02 01:59] LABS: TROPONIN I HIGH SENSITIVITY 28 ng/L (3.0-53)
[2023-09-02 02:00] LABS: ALANINE AMINOTRANSFERASE 78 IU/L (10-49); ALBUMIN 3.8 g/dL (3.2-4.8); ASPARTATE AMINOTRANSFERASE 58 IU/L (<34); BILIRUBIN DIRECT 0.3 mg/dL (<=3.0)
[2023-09-02 02:01] LABS: BILIRUBIN TOTAL 0.8 mg/dL (0.1-1.0); PROTEIN TOTAL 6.3 g/dL (6.0-8.3)
[2023-09-02 02:07] LABS: CREATININE 2.3 mg/dL (0.6-1.3); ETHANOL BLOOD < 10 mg/dL (<10)
[2023-09-02 03:03] LABS: CLARITY URINE CLEAR (CLEAR); COLOR URINE YELLOW (YELLOW); GLUCOSE URINE NEGATIVE (NEGATIVE); KETONES URINE NEGATIVE (NEGATIVE); LEUKOCYTE ESTERASE URINE NEGATIVE (NEGATIVE); NITRITE URINE NEGATIVE (NEGATIVE); OCCULT BLOOD URINE NEGATIVE (NEGATIVE); PROTEIN URINE 2+ (NEGATIVE); SPECIFIC GRAVITY URINE 1.021 (1.005-1.030); UROBILINOGEN URINE 0.2 E.U./dL (0.2-1.0)
[2023-09-02 03:19] LABS: PARTIAL THROMBOPLASTIN TIME 27.8 sec (23.4-31.0); PROTHROMBIN TIME 11.5 sec (9.6-11.0)
[2023-09-02 03:24] LABS: *AMPHETAMINES SCREEN URINE NEGATIVE (NEGATIVE); *BARBITURATES SCREEN URINE NEGATIVE (NEGATIVE); *BENZODIAZEPINES SCREEN URINE NEGATIVE (NEGATIVE); *COCAINE SCREEN URINE PRESUMPTIVE POSITIVE (NEGATIVE); CANNABINOID URINE SCREEN PRESUMPTIVE POSITIVE (NEGATIVE); ECSTASY MDMA SCREEN URINE NEGATIVE (NEGATIVE); METHADONE URINE SCREEN NEGATIVE (NEGATIVE); OPIATES URINE SCREEN NEGATIVE (NEGATIVE); PHENCYCLIDINE URINE SCREEN NEGATIVE (NEGATIVE)
[2023-09-02] MEDS: ASPIRIN 81MG TABLET PO NR (04:28)
[2023-09-02] MEDS: FUROSEMIDE 40MG/4ML VIAL IVP NR (04:28)
[2023-09-02 07:41] VITALS: BP 133/103; PULSE 92; RESP 18; TEMP 98
[2023-09-02 07:56] LABS: BACTERIA URINE NONE SEEN; RBC URINE 0-2 /hpf (0-2); SQUAMOUS EPITHELIAL CELL URINE NONE SEEN /lpf (RARE/1+); WBC URINE 0-2 /hpf (0-2)
== END 2023-09-02 08:21 | disposition left against medical advice (07) ==
LOC: ER 00:56
DX: I11.0 Hypertensive heart disease with heart failure (principal); I50.9 Heart failure, unspecified; F14.90 Cocaine use, unspecified, uncomplicated; Z79.82 Long term (current) use of aspirin; Z79.899 Other long term (current) drug therapy; Z98.890 Other specified postprocedural states
CPT/HCPCS: 80076; 80305; 80048; 81003; 80320; 83880; 83690; 85025; 85610; 85730; 84484; 36415; 71045; 93005; 96374; 96375; 99285; Z7610 ×4; J1940; J2405; G0480

== ENCOUNTER 2023-09-27 06:17 | Emergency (ER) | payer OTHER ==
[~2023-09-27] VITALS: Ht 177.8 cm; Wt 80.0 kg
[2023-09-27 06:20] VITALS: O2SAT 99
[2023-09-27 07:14] LABS: BASOPHILS % 0.6 % (0.0-2.0); EOSINOPHILS % 0.2 % (0.0-5.0); HEMATOCRIT. 51.5 % (42.0-52.0); HEMOGLOBIN. 16.4 g/dL (14.0-18.0); LYMPHOCYTES % 19.5 % (20.0-50.0); MEAN CORPUSCULAR HEMOGLOBIN 26.5 pg (28.0-32.0); MEAN CORPUSCULAR HGB CONC 31.8 g/dL (31.0-37.0); MEAN CORPUSCULAR VOLUME 83.3 fL (80.0-94.0); MEAN PLATELET VOLUME 8.7 fl (7.4-10.4); MONOCYTES % 11.1 % (2.0-8.0); NEUTROPHILS % 68.6 % (40.0-76.0); PLATELET 217 x1000/uL (130-400); RED BLOOD CELL COUNT 6.18 mill/uL (4.7-6.1); RED CELL DISTRIBUTION WIDTH 20.3 % (11.6-14.6); WHITE BLOOD COUNT 7.4 x1000/uL (4.5-11.0)
[2023-09-27 07:26] LABS: CHLORIDE 101 mEq/L (98-107); POTASSIUM 5.6 mEq/L (3.5-5.1); SODIUM 132 mEq/L (136-145)
[2023-09-27 07:27] LABS: CARBON DIOXIDE 18 mEq/L (21-32)
[2023-09-27 07:33] LABS: CREATININE 2.2 mg/dL (0.6-1.3); GLUCOSE 88 mg/dL (70-105); TROPONIN I HIGH SENSITIVITY 51 ng/L (3.0-53); UREA NITROGEN BLOOD 34 mg/dL (9-23)
[2023-09-27] MEDS: FUROSEMIDE 40MG/4ML VIAL IVP ONE (08:38)
[2023-09-27 10:22] VITALS: BP 135/93; PULSE 81; RESP 16; TEMP 97.8
== END 2023-09-27 10:38 | disposition short-term general hospital (02) ==
LOC: ER 06:17 → EDBEDREQ 09:15 → EDBEDREQTM 09:15 → CANBEDREQ 09:33 → ER 10:38
DX: R06.02 Shortness of breath (principal); F14.10 Cocaine abuse, uncomplicated; I11.0 Hypertensive heart disease with heart failure; I50.9 Heart failure, unspecified; Z79.899 Other long term (current) drug therapy; Z98.890 Other specified postprocedural states
CPT/HCPCS: 80048; 83880; 85025; 84484; 36415; 71045; 96374; 99291; J1940; Z7610 ×3

== ENCOUNTER 2024-02-04 13:51 | Emergency (ER) | payer OTHER ==
[~2024-02-04] VITALS: Ht 175.3 cm; Wt 77.0 kg
[2024-02-04 14:12] VITALS: O2SAT 97
[2024-02-04] MEDS: FUROSEMIDE 100MG/10ML VIAL IVP ONE (15:18)
[2024-02-04 15:22] LABS: BASOPHILS % 0.5 % (0.0-2.0); DIFFERENTIAL COMMENT 1; EOSINOPHILS % 0.7 % (0.0-5.0); HEMATOCRIT. 51.4 % (42.0-52.0); HEMOGLOBIN. 16.4 g/dL (14.0-18.0); LYMPHOCYTES % 15.6 % (20.0-50.0); MEAN CORPUSCULAR HEMOGLOBIN 27.3 pg (28.0-32.0); MEAN CORPUSCULAR HGB CONC 31.9 g/dL (31.0-37.0); MEAN CORPUSCULAR VOLUME 85.4 fL (80.0-94.0); MONOCYTES % 12.3 % (2.0-8.0); NEUTROPHILS % 70.9 % (40.0-76.0); RED BLOOD CELL COUNT 6.02 mill/uL (4.7-6.1); RED CELL DISTRIBUTION WIDTH 16.3 % (11.6-14.6); WHITE BLOOD COUNT 6.4 x1000/uL (4.5-11.0)
[2024-02-04 15:26] LABS: CHLORIDE 107 mEq/L (98-107); POTASSIUM 4.4 mEq/L (3.5-5.1)
[2024-02-04 15:27] LABS: CARBON DIOXIDE 27 mEq/L (21-32); SODIUM 140 mEq/L (136-145)
[2024-02-04 15:28] LABS: CALCIUM 9.4 mg/dL (8.7-10.4)
[2024-02-04 15:32] LABS: GLUCOSE 96 mg/dL (70-105)
[2024-02-04 15:33] LABS: UREA NITROGEN BLOOD 20 mg/dL (9-23)
[2024-02-04 15:36] LABS: MEAN PLATELET VOLUME 9.6 fl (7.4-10.4); PLATELET 149 x1000/uL (130-400)
[2024-02-04 15:39] LABS: CREATININE 1.5 mg/dL (0.6-1.3)
[2024-02-04 15:40] LABS: TROPONIN I HIGH SENSITIVITY 76 ng/L (3.0-53)
[2024-02-04] MEDS ORDERED: LOSARTAN 25 MG TABLET PO NR (16:30)
[2024-02-04 16:43] LABS: ALANINE AMINOTRANSFERASE 53 IU/L (10-49); ASPARTATE AMINOTRANSFERASE 44 IU/L (<34); BILIRUBIN DIRECT 0.4 mg/dL (<=3.0); BILIRUBIN TOTAL 0.9 mg/dL (0.1-1.0); PROTEIN TOTAL 6.8 g/dL (6.0-8.3)
[2024-02-04] MEDS: CARVEDILOL 6.25 MG TABLET PO NR (16:56)
[2024-02-04] MEDS: LOSARTAN 50 MG TABLET PO NR (16:56)
[2024-02-04 17:45] VITALS: BP 168/128; PULSE 110; RESP 16; TEMP 37.16964; O2SAT 98
[2024-02-04] MEDS: HYDRALAZINE 20MG/ML VIAL IV NR (18:16)
== END 2024-02-04 18:35 | disposition short-term general hospital (02) ==
LOC: ER 13:51 → EDBEDREQ 14:56 → CANBEDREQ 16:28 → ER 18:35
DX: I11.0 Hypertensive heart disease with heart failure (principal); I50.9 Heart failure, unspecified; Z79.899 Other long term (current) drug therapy
CPT/HCPCS: 99291; 96374; 96375; 80076; 80048; 83880; 85025; 84484; 36415; 71045; 93005; J1940; J0360